=== PATIENT | female | born 1975 | race Caucasian/White ===

== ENCOUNTER 2019-06-16 10:45 | Observation (INO) ==
[2019-06-16] MEDS ORDERED: KETOROLAC TROMETHAMINE 15 MG/ML VIAL IV ONE (11:07)
[2019-06-16] MEDS ORDERED: SODIUM CHLORIDE 0.9% 1000ML 2,000 ML IV ONE (11:07)
[2019-06-16] MEDS ORDERED: MoRPHine SULFATE 4 MG/ML 1 ML CARP\\VIAL IV STA (11:09)
[2019-06-16 11:31] LABS: Basophils # (auto) 0.01 K/uL (0-0.2); Basophils % (auto) 0.1 %; Eosinophils # (auto) 0.04 K/uL (0-0.5); Eosinophils % (auto) 0.4 %; Hematocrit (blood only) 43.5 % (37-47); Hemoglobin 14.8 g/dL (12.0-16.0); Immature Granulocytes # (auto) 0.02 K/uL (0.00-0.02); Immature Granulocytes % (auto) 0.2 %; Lymphocytes # (auto) 0.83 K/uL (1.2-3.4); Lymphocytes % (auto) 7.4 %; Mean Corpuscular Hemoglobin 32.3 pg (25-34); Mean Platelet Volume 10.4 fL (7.4-10.4); Monocytes # (auto) 0.46 K/uL (0.11-0.59); Monocytes % (auto) 4.1 %; Neutrophils # (auto) 9.79 K/uL (1.4-6.5); Neutrophils % (auto) 87.8 %; Platelet Count 214 K/uL (130-400); RDW Coefficient of Variation 13.3 % (11.5-14.5); RDW Standard Deviation 46.2 fL (36.4-46.3); Red Blood Count 4.58 M/uL (4.2-5.4); White Blood Count 11.15 K/uL (4.8-10.8)
[2019-06-16 11:40] LABS: Appearance Urine Clear (Clear); Bilirubin Urine Negative (Negative); Blood Urine Negative (Negative); Color Urine Yellow; Glucose Urine UA Negative (Negative); Ketones Urine Negative (Negative); Leukocyte Esterase Urine Negative (Negative); Nitrite Urine Negative (Negative); Protein Urine Negative (Negative); Specific Gravity Urine 1.003 (1.000-1.030); Urobilinogen Urine Negative (Negative)
[2019-06-16 11:48] LABS: Albumin Level 3.9 gm/dl (3.4-5.0); BUN Creatinine Ratio 9.5 (10-20); Calcium 9.6 mg/dl (8.5-10.1); Creatinine Clr Calc Pharmacy 89.1 ml/min; Est GFR (African American) 121.8; Est GFR (Non-African American) 105.1; Potassium 3.7 mmol/L (3.5-5.1)
[2019-06-16 11:50] LABS: Bilirubin,Total 0.4 mg/dl (0.2-1); Total Protein 7.9 gm/dl (6.4-8.2)
[2019-06-16] MEDS ORDERED: IOVERSOL 100ml IV PRN (12:18)
--- NOTE | 2019-06-16 13:30 | CT Scan Report ---
ABDOMEN AND PELVIS CT WITH IV CONTRAST CT DOSE: 326.82 mGycm HISTORY: lower abd pain severe after intercourse TECHNIQUE: Multiaxial CT images of the abdomen and pelvis were performed following the use of intrave nous contrast. A dose lowering technique was utilized adhering to the principles of ALARA. COMPARISON STUDY: None. FINDINGS: A few bibasilar linear densities consistent with subsegmental atelectasis. No pneumoperiton eum. No pneumatosis. No suspicious lytic or blastic osseous lesions. The liver, gallbladder, pancreas , spleen, adrenal glands, and right kidney are unremarkable. There is a punctate stone within the lef t kidney. No ureteral stones. No hydronephrosis. The bladder is unremarkable. No retroperitoneal lymp hadenopathy. The uterus surgically absent. There is extensive inflammatory change within the pelvis s urrounding the mid sigmoid colon and vaginal cuff. There is diffuse thickening of the vaginal cuff. T here is also moderate thickening of the mid sigmoid colon and a mildly thickened loop of small bowel within the deep pelvis. Multiloculated cystic structure within the right side of the abdomen best see n on image 291 which measures 3.8 x 3.4 cm. The majority of the appendix appears within normal limits . The tip abuts the superior border of this multiloculated cystic structure within the right lower qu adrant. The appendix measures up to 6 mm in diameter. No significant inflammatory change surrounding the visualized appendix. There is also mild thickening of the distal sigmoid colon and rectum. IMPRESSION: 1. Extensive inflammatory change within the lower pelvis surrounding the thickened vaginal cuff, thic kened mid to distal sigmoid colon/rectum, and a few thickened loops of small bowel. There is also a 3 .7 x 3.4 cm multiloculated cystic structure within the right deep pelvis which appears to represent t he ovary. However, this could also represent small multiloculated abscesses or matted loops of thicke dottie small bowel. This is difficult to definitively characterize due to the extensive inflammatory hollie nge. The inflammatory change is nonspecific and could be related to postoperative change if the patie nt has had a recent hysterectomy, pelvic inflammatory disease, a colitis/diverticulitis, or less like ly endometriosis. 2. The majority of the appendix appears within normal limits. The tip the appendix does abut the mult iloculated cystic structure within the right lower quadrant. Acute appendicitis is considered less li hanna. 3. Follow-up can be performed to ensure resolution of the above findings. ACT 112: Negative or not required by law. Electronically signed by: Sukhjinder Severino M.D. 06/16/2019 1:29 PM
[2019-06-16] MEDS ORDERED: PIPERACILLIN/TAZOBACTAM 4.5 GM/120 ML BAG IV ONE (13:55)
[2019-06-16] MEDS ORDERED: PIPERACILL/TAZOBAC CONSULT ACTIVE PRN ×2 (13:55→18:00)
[2019-06-16] MEDS ORDERED: MAGNESIUM HYDROXIDE SUSP 30 ML UDC PO PRN (14:59)
[2019-06-16] MEDS ORDERED: ALUMINUM/MAGNESIUM/SIMETH (MAALOX MAX) 30 ML UDC PO PRN (14:59)
[2019-06-16] MEDS ORDERED: ONDANSETRON INJ 2 MG/ML 2 ML VIAL IV PRN (14:59)
[2019-06-16] MEDS ORDERED: POLYETHYLENE (MIRALAX) 17 GM PACK PO PRN (14:59)
[2019-06-16] MEDS ORDERED: LOPERAMIDE HCL 2 MG CAP PO PRN (14:59)
[2019-06-16] MEDS ORDERED: LORazepam 0.5 MG TAB PO PRN (14:59)
[2019-06-16] MEDS ORDERED: ACETAMINOPHEN 325 MG TAB PO PRN (14:59)
--- NOTE | 2019-06-16 15:02 | Emergency Department Note ---
Entered by Saba Root acting as a scribe for Ralf Gomze DO History of Present Illness General Chief complaint: Abdominal Pain Stated complaint: LOWER ABD PAIN Source: patient History of Present Illness Onset (ago): day(s) 4 Location: abdomen (lower) Pain Consistency: + other (persistent ) Maximum Pain Intensity: 7 Relieved By: + other (bowel movements) Exacerbated By: + other (sexual intercourse) Associated symptoms: + other (positive intermittent light vaginal bleeding with intercourse; positive burning with urination) The patient is a 44 year old female who presents to the Emergency Room with complaints of persistent lower abdominal pain that began 4 days prior to arrival. The patient states that her pain is exacerbated with sexual intercourse and relieved with bowl movements. The patient states that she has had some intermittent light vaginal bleeding after sex. The patient states that this morning she began to have burning with urination. She states that she was seen in [place] for these symptoms when they began but states that a CT and blood work showed nothing. The patient states that she had a hysterectomy in February. Home Medications Home Medications Medication Instructions Recorded Confirmed Type ascorbic [id number] 1,000 mg PO UD 06/16/19 06/16/19 History [Emergen-C] oxycodone-acetaminophen 1 tab PO Q4H PRN 06/16/19 06/16/19 History Allergies Allergy/AdvReac Type Severity Reaction Status Date / Time latex Allergy Intermediate Internally Unverified 06/16/19 12:28 only, no external issues - Rash Sulfa (Sulfonamide Allergy Unknown Unknown - Unverified 06/16/19 12:27 Antibiotics) Possible Rash Past Med/Surg History Surgical History H/O: hysterectomy Social History Preferred Language: Congolese Feels Safe at Home: Yes Smoking Status: Current every day smoker Review of Systems See HPI for pertinent positives & negatives. and A total of 10 systems reviewed and were otherwise negative Physical Exam Vital Signs Vital Signs - 24 hr 06/16/19 10:49 06/16/19 11:30 06/16/19 11:35 Temperature 36.9 C Temperature Source Oral Pulse Rate 120 H 107 H Pulse Rate [Left] Pulse Rate from SpO2 Sensor 107 H Pulse Rhythm [Left] Respiratory Rate 17 21 Respiratory Effort / Characteristics Non-Labored Respiratory Depth Normal Respiratory Pattern Regular Blood Pressure 152/81 H 125/95 Blood Pressure [Left Arm] Blood Pressure Mean 104 101 Blood Pressure Mean [Left Arm] Blood Pressure Position Sitting Pulse Oximetry 98 97 97 Oxygen Delivery Method Room Air Room Air Sepsis Recent Fever Within 48 Hours No Sepsis New/Unexplained Change in Mental Status No Sepsis Action Taken by Nursing No Action Required 06/16/19 11:36 06/16/19 12:00 06/16/19 12:26 Temperature Temperature Source Pulse Rate 96 H 95 H Pulse Rate [Left] 107 H Pulse Rate from SpO2 Sensor 97 H 95 H Pulse Rhythm [Left] Regular Respiratory Rate 19 16 17 Respiratory Effort / Characteristics Non-Labored Respiratory Depth Normal Respiratory Pattern Regular Blood Pressure 116/80 121/73 Blood Pressure [Left Arm] 125/95 Blood Pressure Mean 91 85 Blood Pressure Mean [Left Arm] 105 Blood Pressure Position Pulse Oximetry 98 96 97 Oxygen Delivery Method Room Air Sepsis Recent Fever Within 48 Hours Sepsis New/Unexplained Change in Mental Status Sepsis Action Taken by Nursing 06/16/19 12:31 06/16/19 13:00 06/16/19 13:30 Temperature Temperature Source Pulse Rate 99 H 89 95 H Pulse Rate [Left] Pulse Rate from SpO2 Sensor 100 H 89 94 H Pulse Rhythm [Left] Respiratory Rate 23 21 23 Respiratory Effort / Characteristics Respiratory Depth Respiratory Pattern Blood Pressure 116/68 109/70 106/75 Blood Pressure [Left Arm] Blood Pressure Mean 86 77 82 Blood Pressure Mean [Left Arm] Blood Pressure Position Pulse Oximetry 97 98 97 Oxygen Delivery Method Sepsis Recent Fever Within 48 Hours Sepsis New/Unexplained Change in Mental Status Sepsis Action Taken by Nursing 06/16/19 14:09 Temperature Temperature Source Pulse Rate 98 H Pulse Rate [Left] Pulse Rate from SpO2 Sensor 98 H Pulse Rhythm [Left] Respiratory Rate 23 Respiratory Effort / Characteristics Respiratory Depth Respiratory Pattern Blood Pressure 118/79 Blood Pressure [Left Arm] Blood Pressure Mean 91 Blood Pressure Mean [Left Arm] Blood Pressure Position Pulse Oximetry 98 Oxygen Delivery Method Sepsis Recent Fever Within 48 Hours Sepsis New/Unexplained Change in Mental Status Sepsis Action Taken by Nursing GENERAL: Sitting up in bed, holding lower abdomen, in mild distress. EYE EXAM: normal conjunctiva OROPHARYNX: no exudate, no erythema, lips, buccal mucosa, and tongue normal and mucous membranes are moist NECK: supple, no nuchal rigidity, no adenopathy, non-tender LUNGS: Clear to auscultation. Normal chest wall mechanics HEART: no murmurs, S1 normal and S2 normal ABDOMEN: Tenderness to palpation of suprapubic region, abdomen soft, normo- active bowel sounds, no masses, no rebound or guarding. BACK: Back is symmetrical on inspection and there is no deformity, no midline tenderness, no CVA tenderness. SKIN: no rashes and no bruising UPPER EXTREMITIES: upper extremities are grossly normal. LOWER EXTREMITIES: No pitting edema. NEURO EXAM: Normal sensorium, cranial nerves II-XII grossly intact, normal speech, no gross weakness of arms, no gross weakness of legs. Course Course ED COURSE: Vital signs were reviewed and showed normal vitals. The patients medical record was reviewed The above diagnostic studies were performed and reviewed. ED treatments and interventions as stated above. 1103: The patient was evaluated in room C2B. A complete history and physical examination was performed. 1254: Upon reevaluation, the patient states that she is feeling better. 1351: I discussed the case with Dr. Robins [facility] who states that she will come evaluate the patient. The patient is in agreement with the plan. 1433: Dr. Robins [facility] is currently evaluating the patient. 1441: Dr. Robins [facility] evaluated the patient and states that she is going to further evaluate the patient. Dr. Traylor states that she is going to consult surgery. 1447: Upon reevaluation, the patient is resting comfortably. I discussed my findings with the patient and she understands and agrees with the treatment plan. Based on the patients age, coexisting illnesses, exam and lab findings the decision to treat as an inpatient was made. The patient remained stable while under my care. The patient will be evaluated for further management. Administered Medications Ioversol (Optiray 320 100ml) 94 ml IV ONCE PRN PRN Reason: Interaction Checking Stop: 06/20/19 12:17 Last Admin: 06/16/19 12:18 Dose: 94 ml Documented by: [id number] Discontinued Medications Sodium Chloride (Nss 1000ml) 2,000 mls @ 999 mls/hr IV .Q2H1M ONE Stop: 06/16/19 13:07 Last Infusion: 06/16/19 13:29 Dose: 0 mls/hr Documented by: [id number] Admin: 06/16/19 11:27 Dose: 999 mls/hr Documented by: [id number] Piperacillin Sod/Tazobactam Sod (Zosyn) 4.5 gm in 120 mls @ 240 mls/hr IV NOW ONE Stop: 06/16/19 14:24 Last Infusion: 06/16/19 14:46 Dose: 0 mls/hr Documented by: [id number] Admin: 06/16/19 14:09 Dose: 240 mls/hr Documented by: [id number] Ketorolac Tromethamine (Toradol) 15 mg IV NOW ONE Stop: 06/16/19 11:08 Last Admin: 06/16/19 11:28 Dose: 15 mg Documented by: [id number] Morphine Sulfate (Morphine Sulfate) 4 mg IV NOW STA Stop: 06/16/19 11:10 Last Admin: 06/16/19 11:28 Dose: 4 mg Documented by: [id number] Medical Decision Making Differential Diagnosis Differential diagnoses includes but is not limited to gastritis, peptic ulcer disease, GERD, gallbladder disease, pancreatitis, small bowel obstruction, acute coronary syndrome, pericarditis, ischemic bowel, irritable bowel disease, irritable bowel syndrome, appendicitis, diverticulitis, malignancy, hernia, u rinary tract infection, torsion, /ectopic , perforation, trauma, infectious. Medical Records Attestation: I reviewed the patient's medical records. Home Medications Current Medication List: was personally reviewed by me Laboratory Data Attestation: I reviewed the patient's lab results. Result diagrams: 06/16/19 11:08 06/16/19 11:08 Lab Results 06/16/19 06/16/19 06/16/19 Range/Units 11:05 11:08 11:08 WBC 11.15 H (4.8-10.8) K/uL RBC 4.58 (4.2-5.4) M/uL Hgb 14.8 (12.0-16.0) g/dL Hct 43.5 (37-47) % MCV 95.0 (80-100) fL MCH 32.3 (25-34) pg MCHC 34.0 (32-36) g/dL RDW Std Deviation 46.2 (36.4-46.3) fL RDW Coeff of [place] 13.3 (11.5-14.5) % Plt Count 214 (130-400) K/uL MPV 10.4 (7.4-10.4) fL Immature Gran % (Auto) 0.2 % Neut % (Auto) 87.8 % Lymph % (Auto) 7.4 % [place] % (Auto) 4.1 % Eos % (Auto) 0.4 % Baso % (Auto) 0.1 % Immature Gran # (Auto) 0.02 (0.00-0.02) K/uL Neut # (Auto) 9.79 H (1.4-6.5) K/uL Lymph # (Auto) 0.83 L (1.2-3.4) K/uL [place] # (Auto) 0.46 (0.11-0.59) K/uL Eos # (Auto) 0.04 (0-0.5) K/uL Baso # (Auto) 0.01 (0-0.2) K/uL Sodium 134 L (136-145) mmol/L Potassium 3.7 (3.5-5.1) mmol/L Chloride 101 (98-107) mmol/L Carbon Dioxide 27 (21-32) mmol/L Anion Gap 6.0 (3-11) BUN 7 (7-18) mg/dl Creatinine 0.71 (0.6-1.2) mg/dl Est Cr Clr Drug Dosing 89.1 ml/min Est GFR ( Amer) 121.8 Est GFR (Non-Af Amer) 105.1 BUN/Creatinine Ratio 9.5 L (10-20) Glucose 117 H (70-99) mg/dl Calcium 9.6 (8.5-10.1) mg/dl Total Bilirubin 0.4 (0.2-1) mg/dl AST 9 L (15-37) U/L ALT 10 L (12-78) U/L Alkaline Phosphatase 88 (45-117) U/L Total Protein 7.9 (6.4-8.2) gm/dl Albumin 3.9 (3.4-5.0) gm/dl Globulin 4.0 (2.5-4.0) gm/dl Albumin/Globulin Ratio 1.0 (0.9-2) Lipase 60 L (73-393) U/L Urine Color Yellow Urine Appearance Clear (Clear) Urine pH 7.0 (4.5-7.5) Ur Specific [place] 1.003 (1.000-1.030) Urine Protein Negative (Negative) Urine Glucose (UA) Negative (Negative) Urine Ketones Negative (Negative) Urine Blood Negative (Negative) Urine Nitrite Negative (Negative) Urine Bilirubin Negative (Negative) Urine Urobilinogen Negative (Negative) Ur Leukocyte Esterase Negative (Negative) POC Ur Test (NEG) 06/16/19 Range/Units Unknown WBC (4.8-10.8) K/uL RBC (4.2-5.4) M/uL Hgb (12.0-16.0) g/dL Hct (37-47) % MCV (80-100) fL MCH (25-34) pg MCHC (32-36) g/dL RDW Std Deviation (36.4-46.3) fL RDW Coeff of [place] (11.5-14.5) % Plt Count (130-400) K/uL MPV (7.4-10.4) fL Immature Gran % (Auto) % Neut % (Auto) % Lymph % (Auto) % [place] % (Auto) % Eos % (Auto) % Baso % (Auto) % Immature Gran # (Auto) (0.00-0.02) K/uL Neut # (Auto) (1.4-6.5) K/uL Lymph # (Auto) (1.2-3.4) K/uL [place] # (Auto) (0.11-0.59) K/uL Eos # (Auto) (0-0.5) K/uL Baso # (Auto) (0-0.2) K/uL Sodium (136-145) mmol/L Potassium (3.5-5.1) mmol/L Chloride (98-107) mmol/L Carbon Dioxide (21-32) mmol/L Anion Gap (3-11) BUN (7-18) mg/dl Creatinine (0.6-1.2) mg/dl Est Cr Clr Drug Dosing ml/min Est GFR ( Amer) Est GFR (Non-Af Amer) BUN/Creatinine Ratio (10-20) Glucose (70-99) mg/dl Calcium (8.5-10.1) mg/dl Total Bilirubin (0.2-1) mg/dl AST (15-37) U/L ALT (12-78) U/L Alkaline Phosphatase (45-117) U/L Total Protein (6.4-8.2) gm/dl Albumin (3.4-5.0) gm/dl Globulin (2.5-4.0) gm/dl Albumin/Globulin Ratio (0.9-2) Lipase (73-393) U/L Urine Color Urine Appearance (Clear) Urine pH (4.5-7.5) Ur Specific [place] (1.000-1.030) Urine Protein (Negative) Urine Glucose (UA) (Negative) Urine Ketones (Negative) Urine Blood (Negative) Urine Nitrite (Negative) Urine Bilirubin (Negative) Urine Urobilinogen (Negative) Ur Leukocyte Esterase (Negative) POC Ur Test NEG (NEG) Imaging Data Radiologist's Impression: Radiology results as stated below per my review and the radiologist's interpretation: ABDOMEN AND PELVIS CT WITH IV CONTRAST CT DOSE: 326.82 mGycm HISTORY: lower abd pain severe after intercourse TECHNIQUE: Multiaxial CT images of the abdomen and pelvis were performed foll owing the use of intravenous contrast. A dose lowering technique was utilized adhering to the principles of ALARA. COMPARISON STUDY: None. FINDINGS: A few bibasilar linear densities consistent with subsegmental atelectasis. No pneumoperitoneum. No pneumatosis. No suspicious lytic or blastic osseous lesions. The liver, gallbladder, pancreas, spleen, adrenal glands, and right kidney are unremarkable. There is a punctate stone within the left kidney. No ureteral stones. No hydronephrosis. The bladder is unremarkable. No retroperitoneal lymphadenopathy. The uterus surgically absent. There is ex tensive inflammatory change within the pelvis surrounding the mid sigmoid colon and vaginal cuff. There is diffuse thickening of the vaginal cuff. There is also moderate thickening of the mid sigmoid colon and a mildly thickened loop of small bowel within the deep pelvis. Multiloculated cystic structure within the right side of the abdomen best seen on image 291 which measures 3.8 x 3.4 cm. The majority of the appendix appears within normal limits. The tip abuts the superior border of this multiloculated cystic structure within the right lower quadrant. The appendix measures up to 6 mm in diameter. No significant inflammatory change surrounding the visualized appendix. There is also mild thi ckening of the distal sigmoid colon and rectum. IMPRESSION: 1. Extensive inflammatory change within the lower pelvis surrounding the thickened vaginal cuff, thickened mid to distal sigmoid colon/rectum, and a few thickened loops of small bowel. There is also a 3.7 x 3.4 cm multiloculated cystic structure within the right deep pelvis which appears to represent the ovary. However, this could also represent small multiloculated abscesses or matted loops of thickened small bowel. This is difficult to definitively characterize due to the extensive inflammatory change. The inflammatory change is nonspecific and could be related to postoperative change if the patient has had a recent hysterectomy, pelvic inflammatory disease, a colitis/diverticulitis, or less likely endometriosis. 2. The majority of the appendix appears within normal limits. The tip the appendix does abut the multiloculated cystic structure within the right lower quadrant. Acute appendicitis is considered less likely. 3. Follow-up can be performed to ensure resolution of the above findings. ACT 112: Negative or not required by law. Electronically signed by: Sukhjinder Severino M.D. 06/16/2019 1:29 PM Blood Pressure Blood Pressure Findings: Normal blood pressure MDM Narrative Patient is a 44-year-old female who presents the ER for severe lower abdominal pain. Patient had a partial hysterectomy back in February and has been having severe pain after intercourse since then. The pain significantly worsened the S at when she had bleeding. She was seen at [facility]'s ER and had a CT of the abdomen pelvis which was fairly unremarkable but had a mildly elevated lactic acid. She left AMA. She came back in today and the pain was worsening. IV was established blood work was obtained. Labs show a leukocytosis of 11,000. No significant anemia. BMP, LFTs, bilirubin and lipase was unremarkable. UA was negative. was negative. CT abdomen pelvis shows a large amount of inflammation. This is significantly changed from the CT performed at [place] recently for the same symptoms. Patient was given IV Zosyn and IV fluids. Evaluated by [facility]. They performed pelvic at bedside whi ch had purulent pus present. Patient was updated bedside admitted to [facility] for pelvic inflammatory disease. There is a fair amount of stranding in the abdomen but I do believe that this is all pelvic in origin as everything started after intercourse. Impression & Plan Pelvic inflammatory disease, Abdominal pain, Colitis Discharge Plan Visit Data Chief Complaint: Abdominal Pain Stated Complaint: LOWER ABD PAIN ED Provider: Gomez,Ralf M Discharge Problem: Pelvic inflammatory disease, Abdominal pain, Colitis Patient Disposition: Being Evaluated by Hospitalist Forms Stand Alone Forms: Call Back Authorization, My [facility] Prescriptions Prescriptions: No Action oxycodone-acetaminophen 5-325 mg tablet 1 tab PO Q4H PRN (Reason: Pain) RF: 0 Emergen-C 1,000 mg Powder Effervescent In Packet 1,000 mg PO UD RF: 0 Referrals Referrals: Syd Lopez DO [Primary Care Provider] - Discharge Problem: Abdominal pain Qualifiers: Abdominal location: lower abdomen, unspecified Qualified Code(s): R10.30 - Lower abdominal pain, unspecified The scribe's documentation has been prepared under my direction and personally reviewed by me in its entirety. I confirm that the note above accurately reflects all work, treatment, procedures, and medical decision making performed by me.
[2019-06-16] MEDS: LACTATED RINGER'S 1,000 ML IV SCH (16:45)
[2019-06-16] MEDS ORDERED: OXYCODONE/ACETAMINOPHEN 5mg/325mg TAB ONE (17:12)
[2019-06-16] MEDS: IBUPROFEN 600 MG TAB PO PRN ×2 (17:14→21:08)
[2019-06-16] MEDS ORDERED: OXYCODONE/ACETAMINOPHEN 5mg/325mg TAB PO PRN ×2 (17:14→17:22)
--- NOTE | 2019-06-16 17:57 | OB/GYN Consultation ---
Date of Consultation June 16, 2019 Assessment & Plan (1) Vaginal cuff cellulitis: 44 yo female who is s/p Lap Hysterectomy about 3.5 months ago, now with ongoing dyspareunia, postcoital bleeding , pelvic pain, findings suggesting cuff cellulitis Inflammatory changes in cuff, pelvic and adjacent bowels Plan to admit for IV AB, G. Surgery consult and reevaluate All questions were answered (2) S/P laparoscopic hysterectomy: (3) Abdominal pain: History of Present Illness Reason for Consultation: Pelvic pain, s/p hysterectomy Requesting Physician: Dr. Gomez Attending Physician: Diane Moreland MD History of Present Illness The patient is a 44 year old female who presented to the Emergency Room with complaints of persistent lower abdominal pain that began 4 days ago. The patient states that her pain is exacerbated with sexual intercourse and relieved with bowl movements. 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 She had Lap hysterectomy by Dr. Diaz in [facility] in February, or not sure. She recovered well and saw her doctor x2, no pelvic exam was done per her She was released to have SI after 6 weeks. SI had been painful. On 05/14 she had heavy VB after SI and it stopped she has not called her doctor The patient states that she has had some intermittent light vaginal bleeding after sex, last one was 4 days ago and it stopped since then. The patient states that this morning she began to have burning with urination as well and pain coming back despite she has been using Percoset. She states that she was seen in [place] for these symptoms 3 days ago and was told her CT and blood work showed nothing. She was sent home She called her surgeon's office but unable to see her till 06/[address] scan showed changes suggesting cuff cellulitis I recommended to have admission for IV AB and G Surgery consult and she accepted Allergies Allergy/AdvReac Type Severity Reaction Status Date / Time latex Allergy Intermediate Internally Unverified 06/16/19 12:28 only, no external issues - Rash Sulfa (Sulfonamide Allergy Unknown Unknown - Unverified 06/16/19 12:27 Antibiotics) Possible Rash Home Medications Home Medications Medication Instructions Recorded Confirmed Type ascorbic [id number] 1,000 mg PO UD 06/16/19 06/16/19 History [Emergen-C] oxycodone-acetaminophen 1 tab PO Q4H PRN 06/16/19 06/16/19 History Patient History Surgical History H/O: hysterectomy Social History Preferred Language: Malay Feels Safe at Home: Yes Smoking Status: Current every day smoker Review of Systems Review of Systems: All systems reviewed & are unremarkable except as noted in HPI & below Physical Exam Constitutional: WD/WN, vitals as above well developed, well nourished, + acute distress (mild) and + thin Gastrointestinal (Abdomen): Aft soft, flat, ND, lower adominal tenderness+, on LLQ, RLQ and suprapubic, no rebound Genitourinary: normal external appearance SSE; yellow d/c in vagina, cuff seen, yellow, covered with puss and mild ? necrotic tissues at the site of repair, no bleeding Results & Data Vital Signs (Past 12 Hours) Vital Signs Temp Pulse Pulse Resp BP BP Pulse Ox 06/16/19 16:27 80 18 128/68 98 06/16/19 14:09 98 H 23 118/79 98 06/16/19 13:30 95 H 23 106/75 97 06/16/19 13:00 89 21 109/70 98 06/16/19 12:31 99 H 23 116/68 97 06/16/19 12:26 95 H 17 121/73 97 06/16/19 12:00 96 H 16 116/80 96 06/16/19 11:36 107 H 19 125/95 98 06/16/19 11:35 97 06/16/19 11:30 107 H 21 125/95 97 06/16/19 10:49 36.9 C 120 H 17 152/81 H 98 Laboratory Results 06/16/19 06/16/19 06/16/19 Range/Units Unknown 11:08 11:08 WBC 11.15 H (4.8-10.8) K/uL RBC 4.58 (4.2-5.4) M/uL Hgb 14.8 (12.0-16.0) g/dL Hct 43.5 (37-47) % MCV 95.0 (80-100) fL MCH 32.3 (25-34) pg MCHC 34.0 (32-36) g/dL RDW Std Deviation 46.2 (36.4-46.3) fL RDW Coeff of [place] 13.3 (11.5-14.5) % Plt Count 214 (130-400) K/uL MPV 10.4 (7.4-10.4) fL Immature Gran % (Auto) 0.2 % Neut % (Auto) 87.8 % Lymph % (Auto) 7.4 % [place] % (Auto) 4.1 % Eos % (Auto) 0.4 % Baso % (Auto) 0.1 % Immature Gran # (Auto) 0.02 (0.00-0.02) K/uL Neut # (Auto) 9.79 H (1.4-6.5) K/uL Lymph # (Auto) 0.83 L (1.2-3.4) K/uL [place] # (Auto) 0.46 (0.11-0.59) K/uL Eos # (Auto) 0.04 (0-0.5) K/uL Baso # (Auto) 0.01 (0-0.2) K/uL Sodium 134 L (136-145) mmol/L Potassium 3.7 (3.5-5.1) mmol/L Chloride 101 (98-107) mmol/L Carbon Dioxide 27 (21-32) mmol/L Anion Gap 6.0 (3-11) BUN 7 (7-18) mg/dl Creatinine 0.71 (0.6-1.2) mg/dl Est Cr Clr Drug Dosing 89.1 ml/min Est GFR ( Amer) 121.8 Est GFR (Non-Af Amer) 105.1 BUN/Creatinine Ratio 9.5 L (10-20) Glucose 117 H (70-99) mg/dl Calcium 9.6 (8.5-10.1) mg/dl Total Bilirubin 0.4 (0.2-1) mg/dl AST 9 L (15-37) U/L ALT 10 L (12-78) U/L Alkaline Phosphatase 88 (45-117) U/L Total Protein 7.9 (6.4-8.2) gm/dl Albumin 3.9 (3.4-5.0) gm/dl Globulin 4.0 (2.5-4.0) gm/dl Albumin/Globulin Ratio 1.0 (0.9-2) Lipase 60 L (73-393) U/L Urine Color Urine Appearance (Clear) Urine pH (4.5-7.5) Ur Specific [place] (1.000-1.030) Urine Protein (Negative) Urine Glucose (UA) (Negative) Urine Ketones (Negative) Urine Blood (Negative) Urine Nitrite (Negative) Urine Bilirubin (Negative) Urine Urobilinogen (Negative) Ur Leukocyte Esterase (Negative) POC Ur Test NEG (NEG) 06/16/19 Range/Units 11:05 WBC (4.8-10.8) K/uL RBC (4.2-5.4) M/uL Hgb (12.0-16.0) g/dL Hct (37-47) % MCV (80-100) fL MCH (25-34) pg MCHC (32-36) g/dL RDW Std Deviation (36.4-46.3) fL RDW Coeff of [place] (11.5-14.5) % Plt Count (130-400) K/uL MPV (7.4-10.4) fL Immature Gran % (Auto) % Neut % (Auto) % Lymph % (Auto) % [place] % (Auto) % Eos % (Auto) % Baso % (Auto) % Immature Gran # (Auto) (0.00-0.02) K/uL Neut # (Auto) (1.4-6.5) K/uL Lymph # (Auto) (1.2-3.4) K/uL [place] # (Auto) (0.11-0.59) K/uL Eos # (Auto) (0-0.5) K/uL Baso # (Auto) (0-0.2) K/uL Sodium (136-145) mmol/L Potassium (3.5-5.1) mmol/L Chloride (98-107) mmol/L Carbon Dioxide (21-32) mmol/L Anion Gap (3-11) BUN (7-18) mg/dl Creatinine (0.6-1.2) mg/dl Est Cr Clr Drug Dosing ml/min Est GFR ( Amer) Est GFR (Non-Af Amer) BUN/Creatinine Ratio (10-20) Glucose (70-99) mg/dl Calcium (8.5-10.1) mg/dl Total Bilirubin (0.2-1) mg/dl AST (15-37) U/L ALT (12-78) U/L Alkaline Phosphatase (45-117) U/L Total Protein (6.4-8.2) gm/dl Albumin (3.4-5.0) gm/dl Globulin (2.5-4.0) gm/dl Albumin/Globulin Ratio (0.9-2) Lipase (73-393) U/L Urine Color Yellow Urine Appearance Clear (Clear) Urine pH 7.0 (4.5-7.5) Ur Specific [place] 1.003 (1.000-1.030) Urine Protein Negative (Negative) Urine Glucose (UA) Negative (Negative) Urine Ketones Negative (Negative) Urine Blood Negative (Negative) Urine Nitrite Negative (Negative) Urine Bilirubin Negative (Negative) Urine Urobilinogen Negative (Negative) Ur Leukocyte Esterase Negative (Negative) POC Ur Test (NEG) (1) Abdominal pain Abdominal location: lower abdomen, unspecified Qualified Code(s): R10.30 - Lower abdominal pain, unspecified
[2019-06-16] MEDS: PIPERACILLIN/TAZOBACTAM 3.375 GM in DEXTROSE 5% 100 ML IV SCH (18:00)
[2019-06-17] MEDS: IBUPROFEN 600 MG TAB PO PRN ×3 (01:54→14:20)
[2019-06-17] MEDS: PIPERACILLIN/TAZOBACTAM 3.375 GM in DEXTROSE 5% 100 ML IV SCH ×2 (01:55→10:29)
[2019-06-17] MEDS: LACTATED RINGER'S 1,000 ML IV SCH (06:36)
[2019-06-17 07:29] LABS: Basophils # (auto) 0.01 K/uL (0-0.2); Basophils % (auto) 0.2 %; Eosinophils # (auto) 0.11 K/uL (0-0.5); Eosinophils % (auto) 1.8 %; Hematocrit (blood only) 33.5 % (37-47); Hemoglobin 11.3 g/dL (12.0-16.0); Immature Granulocytes # (auto) 0.01 K/uL (0.00-0.02); Immature Granulocytes % (auto) 0.2 %; Lymphocytes % (auto) 18.1 %; Mean Corpuscular Hemoglobin 32.3 pg (25-34); Mean Corpuscular Hgb Conc 33.7 g/dL (32-36); Mean Corpuscular Volume 95.7 fL (80-100); Mean Platelet Volume 10.2 fL (7.4-10.4); Monocytes # (auto) 0.42 K/uL (0.11-0.59); Monocytes % (auto) 6.9 %; Neutrophils # (auto) 4.42 K/uL (1.4-6.5); Neutrophils % (auto) 72.8 %; Platelet Count 167 K/uL (130-400); RDW Coefficient of Variation 13.5 % (11.5-14.5); RDW Standard Deviation 47.5 fL (36.4-46.3); White Blood Count 6.07 K/uL (4.8-10.8)
[2019-06-17 07:35] LABS: BUN Creatinine Ratio 16.7 (10-20); Calcium 8.5 mg/dl (8.5-10.1); Creatinine Clr Calc Pharmacy 105.5 ml/min; Est GFR (African American) 130.3; Est GFR (Non-African American) 112.4; Potassium 3.7 mmol/L (3.5-5.1)
--- NOTE | 2019-06-17 07:51 | Obstetrical Progress Note ---
Date of Service June 17, 2019 Subjective Patient is seen and examined. She feels well, no complaints. Likes to be discharged. Ambulating without dizziness Voiding without difficulty Tolerating regular diet with out N&V No bleeding, no discharge. No fever/ chills/ CP/ SOB/ N&V/ Leg pain Vital Signs Temp Pulse Pulse Resp BP BP Pulse Ox 06/17/19 02:00 36.1 C L 81 14 99/66 L 96 06/16/19 20:20 36.8 C 95 H 14 104/70 96 06/16/19 18:10 37.3 C 06/16/19 16:45 38.5 C H 96 H 18 119/77 98 06/16/19 16:27 80 18 128/68 98 06/16/19 14:09 98 H 23 118/79 98 06/16/19 13:30 95 H 23 106/75 97 06/16/19 13:00 89 21 109/70 98 06/16/19 12:31 99 H 23 116/68 97 06/16/19 12:26 95 H 17 121/73 97 06/16/19 12:00 96 H 16 116/80 96 06/16/19 11:36 107 H 19 125/95 98 06/16/19 11:35 97 06/16/19 11:30 107 H 21 125/95 97 06/16/19 10:49 36.9 C 120 H 17 152/81 H 98 Intake and Output 06/16/19 06/17/19 06/17/19 22:59 06:59 14:59 Intake Total 115 / 4050 1815 / 4050 Output Total 1450 / 1450 Balance 115 / 2600 365 / 2600 Intake: IV 115 / 3350 1115 / 3350 Lr 1,000 ml @ 125 mls/hr IV . 1000 / 1000 Q8H CHARLY Rx#:[id number] Zosyn 3.375 gm In D5 100 ml @ 115 / 230 115 / 230 28.75 mls/hr IV Q8H CHARLY Rx#: [id number] Oral 700 / 700 Output: Urine 1450 / 1450 Other: Weight 55.5 kg 06/17/19 06/17/19 06/16/19 Range/Units 06:45 06:45 Unknown WBC 6.07 (4.8-10.8) K/uL RBC 3.50 L (4.2-5.4) M/uL Hgb 11.3 L D (12.0-16.0) g/dL Hct 33.5 L (37-47) % MCV 95.7 (80-100) fL MCH 32.3 (25-34) pg MCHC 33.7 (32-36) g/dL RDW Std Deviation 47.5 H (36.4-46.3) fL RDW Coeff of [place] 13.5 (11.5-14.5) % Plt Count 167 (130-400) K/uL MPV 10.2 (7.4-10.4) fL Immature Gran % (Auto) 0.2 % Neut % (Auto) 72.8 % Lymph % (Auto) 18.1 % [place] % (Auto) 6.9 % Eos % (Auto) 1.8 % Baso % (Auto) 0.2 % Immature Gran # (Auto) 0.01 (0.00-0.02) K/uL Neut # (Auto) 4.42 (1.4-6.5) K/uL Lymph # (Auto) 1.10 L (1.2-3.4) K/uL [place] # (Auto) 0.42 (0.11-0.59) K/uL Eos # (Auto) 0.11 (0-0.5) K/uL Baso # (Auto) 0.01 (0-0.2) K/uL Sodium 138 (136-145) mmol/L Potassium 3.7 (3.5-5.1) mmol/L Chloride 108 H (98-107) mmol/L Carbon Dioxide 25 (21-32) mmol/L Anion Gap 5.0 (3-11) BUN 10 (7-18) mg/dl Creatinine 0.60 (0.6-1.2) mg/dl Est Cr Clr Drug Dosing 105.5 ml/min Est GFR ( Amer) 130.3 Est GFR (Non-Af Amer) 112.4 BUN/Creatinine Ratio 16.7 (10-20) Glucose 83 (70-99) mg/dl Calcium 8.5 (8.5-10.1) mg/dl Total Bilirubin Pending (0.2-1) mg/dl AST 43 H (15-37) U/L ALT 17 (12-78) U/L Alkaline Phosphatase Pending (45-117) U/L Total Protein Pending (6.4-8.2) gm/dl Albumin 3.0 L (3.4-5.0) gm/dl Globulin Pending (2.5-4.0) gm/dl Albumin/Globulin Ratio Pending (0.9-2) Lipase (73-393) U/L Urine Color Urine Appearance (Clear) Urine pH (4.5-7.5) Ur Specific [place] (1.000-1.030) Urine Protein (Negative) Urine Glucose (UA) (Negative) Urine Ketones (Negative) Urine Blood (Negative) Urine Nitrite (Negative) Urine Bilirubin (Negative) Urine Urobilinogen (Negative) Ur Leukocyte Esterase (Negative) POC Ur Test NEG (NEG) 06/16/19 06/16/19 06/16/19 Range/Units 11:08 11:08 11:05 WBC 11.15 H (4.8-10.8) K/uL RBC 4.58 (4.2-5.4) M/uL Hgb 14.8 (12.0-16.0) g/dL Hct 43.5 (37-47) % MCV 95.0 (80-100) fL MCH 32.3 (25-34) pg MCHC 34.0 (32-36) g/dL RDW Std Deviation 46.2 (36.4-46.3) fL RDW Coeff of [place] 13.3 (11.5-14.5) % Plt Count 214 (130-400) K/uL MPV 10.4 (7.4-10.4) fL Immature Gran % (Auto) 0.2 % Neut % (Auto) 87.8 % Lymph % (Auto) 7.4 % [place] % (Auto) 4.1 % Eos % (Auto) 0.4 % Baso % (Auto) 0.1 % Immature Gran # (Auto) 0.02 (0.00-0.02) K/uL Neut # (Auto) 9.79 H (1.4-6.5) K/uL Lymph # (Auto) 0.83 L (1.2-3.4) K/uL [place] # (Auto) 0.46 (0.11-0.59) K/uL Eos # (Auto) 0.04 (0-0.5) K/uL Baso # (Auto) 0.01 (0-0.2) K/uL Sodium 134 L (136-145) mmol/L Potassium 3.7 (3.5-5.1) mmol/L Chloride 101 (98-107) mmol/L Carbon Dioxide 27 (21-32) mmol/L Anion Gap 6.0 (3-11) BUN 7 (7-18) mg/dl Creatinine 0.71 (0.6-1.2) mg/dl Est Cr Clr Drug Dosing 89.1 ml/min Est GFR ( Amer) 121.8 Est GFR (Non-Af Amer) 105.1 BUN/Creatinine Ratio 9.5 L (10-20) Glucose 117 H (70-99) mg/dl Calcium 9.6 (8.5-10.1) mg/dl Total Bilirubin 0.4 (0.2-1) mg/dl AST 9 L (15-37) U/L ALT 10 L (12-78) U/L Alkaline Phosphatase 88 (45-117) U/L Total Protein 7.9 (6.4-8.2) gm/dl Albumin 3.9 (3.4-5.0) gm/dl Globulin 4.0 (2.5-4.0) gm/dl Albumin/Globulin Ratio 1.0 (0.9-2) Lipase 60 L (73-393) U/L Urine Color Yellow Urine Appearance Clear (Clear) Urine pH 7.0 (4.5-7.5) Ur Specific [place] 1.003 (1.000-1.030) Urine Protein Negative (Negative) Urine Glucose (UA) Negative (Negative) Urine Ketones Negative (Negative) Urine Blood Negative (Negative) Urine Nitrite Negative (Negative) Urine Bilirubin Negative (Negative) Urine Urobilinogen Negative (Negative) Ur Leukocyte Esterase Negative (Negative) POC Ur Test (NEG) PE: General: Alert, orientedx3, NAD Abd: soft, NT, ND No VB/ discharge Ext; NT, no edema AP: 44 yo s/p Lap hysterectomy 3.5 months ago, admitted for cuff cellulitis yesterday on IV AB VSS Afebrile doing well G. Surgery consult pending, I talked to Dr. Bowling last night and he would come this morning Patient is adamant to leave Continue to monitor closely All questions were answered Results & Data Vital Signs (Past 12 Hours) Vital Signs Temp Pulse Resp BP Pulse Ox 06/17/19 02:00 36.1 C L 81 14 99/66 L 96 06/16/19 20:20 36.8 C 95 H 14 104/70 96
[2019-06-17 08:06] LABS: Albumin Globulin Ratio 0.9 (0.9-2); Bilirubin,Total 0.6 mg/dl (0.2-1); Globulin 3.2 gm/dl (2.5-4.0); Total Protein 6.2 gm/dl (6.4-8.2)
[2019-06-17] MEDS ORDERED: metroNIDAZOLE 500 MG TAB PO SCH (09:00)
--- NOTE | 2019-06-17 09:31 | Surgery Consultation ---
Date of Consultation June 17, 2019 Assessment & Plan (1) Vaginal cuff cellulitis: (2) Pelvic inflammatory disease: There is clearly an inflammatory process in the pelvis. She is feeling much better today and her white count is improved which is all encouraging. My recommendation would be another 24 hours of IV antibiotics followed by outpatient oral antibiotics. I would repeat the CAT scan in 1 to 2 weeks to ensure resolution of the pelvic abscess. If her symptoms would get worse or she would clinically deteriorate she might need interventional radiology to drain the fluid collection. It is unclear to me of the actual etiology of the inflammatory process. I also recommended to her once this acute process resolves the next 3 months or so she should consider seeing GI for a colonoscopy. I will continue to follow her as long as she is here. History of Present Illness Attending Physician: Diane Moreland MD History of Present Illness Patient had a hysterectomy performed in [facility] in February. Since that time she has had some issues with some pain and bleeding with intercourse as well as generalized discomfort in the lower abdomen. Over the last several days it intensified and she presented to the emergency room. CT scan shows inflammatory process in the pelvis with likely small abscess. On her vaginal exam according to Gyne her vaginal cuff was inflamed with some discharge. Allergies Allergy/AdvReac Type Severity Reaction Status Date / Time latex Allergy Intermediate Internally Unverified 06/16/19 12:28 only, no external issues - Rash Sulfa (Sulfonamide Allergy Unknown Unknown - Unverified 06/16/19 12:27 Antibiotics) Possible Rash Home Medications Home Medications Medication Instructions Recorded Confirmed Type Emergen-C 1,000 mg PO UD 06/16/19 06/16/19 History amoxicillin-pot clavulanate 1 tab PO Q12H #20 tab 06/17/19 Rx [Augmentin] metronidazole [Flagyl] 500 mg PO BID 10 Days #20 tab 06/17/19 Rx Patient History Surgical History H/O: hysterectomy Social History Preferred Language: Icelandic Communication Ability: Effective 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 Beliefs That Will Affect Care: None Current Living Situation: Significant Other Other Information That Helps Us Care for You: No Feels Safe at Home: Yes Safety Concerns: Feels Safe At This Time Smoking Status: Current every day smoker Tobacco Type: cigarettes ; Do You Dip or Chew Tobacco: No ; Second Hand Exposure: Yes ; Tobacco Cessation Education Requested by Patient: No Hx Alcohol Use: Yes Alcohol type: beer Hx Substance Use: No Review of Systems Review of Systems: All systems reviewed & are unremarkable except as noted in HPI & below Physical Exam Constitutional: WD/WN, vitals as above no acute distress and not ill appearing Eyes: PERRL, conjunctivae normal, anicteric sclerae EOM intact bilaterally ENMT: external ear and nose normal, oropharynx normal Ears: no hearing impairment Neck: trachea midline, no thyromegaly Respiratory: normal respiratory effort; no respiratory distress and does not use accessory muscles Cardiovascular: Rate/Rhythm: regular rate and regular rhythm Gastrointestinal (Abdomen): Soft with mild suprapubic tenderness. No peritoneal signs. Skin: no rashes, warm and dry Psychiatric: Orientation: alert, oriented x 3 and cooperative Results & Data Vital Signs (Past 12 Hours) Vital Signs Temp Pulse Resp BP Pulse Ox 06/17/19 08:39 36.4 C L 80 18 109/72 96 06/17/19 02:00 36.1 C L 81 14 99/66 L 96 PG Care Time/CCT Total # of Minutes Spent Total Time Spent with Patient: Total time spent is greater than 50% in coordination of care (as documented) at patient's floor/unit and/or counseling patient:
--- NOTE | 2019-06-20 09:05 | Discharge Summary ---
DETAILS OF ADMISSION: The patient is a 44-year-old G2, P2-0-0-2 female who is status post laparoscopic hysterectomy in mid-February at [facility]. She presented to ER with ongoing post-coital pelvic pain and spotting. CT scan, physical exam, and blood work suggested she was having cuff cellulitis, inflammation in the pelvis/vaginal cuff, as well as sigmoid colon or rectum. She was admitted for IV antibiotic therapy. She was placed on Zosyn every 6 hours and also general surgery consultation was ordered. After 24 hours of IV antibiotics, she felt much better and she was afebrile. Her white count came down to normal. She wanted to go home and general surgeon, Dr. Bowling, and myself recommended 48 hours of IV antibiotics, but the patient declined and she wanted to go home. She is to follow up with general surgery in 1-[address] scan. Her vaginal culture was positive for Gardnerella vaginalis and she was placed on Augmentin and Flagyl and she is to be seen by her surgeon in [place] on June 23, 2019. BEATRICE
== END 2019-06-17 14:45 | disposition home or self-care (01) ==
LOC: 4N 10:45 → ED 10:45 → 4N 16:27